=== PATIENT | male | born 1955 | race Caucasian/White ===

== ENCOUNTER 2016-12-16 07:41 | Outpatient (CLI) | payer BC ==
[~2016-12-16 07:41] MED LIST: ISOVUE-370 76% 1 ML ONE
--- NOTE | 2016-12-16 09:13 | CT ---
CT CHEST WITH IV CONTRAST CT ABDOMEN WITH IV CONTRAST CT PELVIS WITH IV CONTRAST: HISTORY: A 61-year-old male with malignant calcified tumors of both sides. COMPARISON: 07/13/16. FINDINGS: The 1.7 cm left paratracheal lymph node in the superior mediastinum adjacent to the thyroid gland is stable. No other enlarged mediastinal, hilar, or axillary lymph nodes are seen. Mild atelectatic changes are noted in the lower lung fofana. A 9 mm pulmonary nodule in the medial aspect of the lef t lower lobe is stable. No new pulmonary nodules are seen. The pleural or pericardial effusions ar e identified. Changes of fatty infiltration of the liver are redemonstrated. The 1 cm focal area of enhancement i n the right hepatic lobe is stable since 11/27/14. No new hepatic lesions are seen. The spleen, pancreas, adrenal glands, and left kidney are normal. A nonobstructing right renal calc ulus is redemonstrated. No calcified gallstones are seen. No free air or free fluid is seen in the abdomen or pelvis. mesenteric lymphadenopathy is again not ed. The enlarged lymph node in the central lower mesentery is stable measuring 4.2 cm. Prominent n onenlarged lymph nodes in the javi hepatis and periaortic and aortocaval lesions are stable. Postop changes of right total hip prostheses and old fracture deformity of the left clavicle are red emonstrated. There are degenerative changes in the spine. The small bowel loops are not abnormally dilated. There is mild sigmoid diverticulosis. IMPRESSION: Stable exam since 07/13/16. POS: [facility]
== END 2016-12-16 07:42 | disposition home or self-care (01) ==
LOC: CT 07:41
PROVIDERS: ATTEND Internal Medicine Hematology & Oncology
DX: C7A.098 Malignant carcinoid tumors of other sites (principal)
CPT/HCPCS: 71260; 74177

== ENCOUNTER 2018-01-01 07:25 | Outpatient (CLI) | payer BC ==
--- NOTE | 2018-01-01 11:57 | CT ---
CT OF THE CHEST AND ABDOMEN AND PELVIS WITH IV CONTRAST: INDICATION: History of malignant carcinoid tumor. CONTRAST: 70 cc of Isovue 370. COMPARISON: CT of the chest, abdomen, and pelvis dated 12/16/16. FINDINGS: The left paratracheal enlarged lymph node is stable measuring approximately 1.6 cm. No new pathologi c lymph node is seen within the mediastinum, hilar, or axillary regions. There is linear scarring versus atelectasis again seen within the left lung. The 9 mm pulmonary nodu le within the medial left lower lobe is stable. No new pulmonary nodule is identified. There is stale fatty infiltration of the liver. The 1 cm focal area of enhancement involving the rig ht hepatic lobe is stable. No new hepatic lesion is evident. There is a stable 5 mm stone within the mid lower pole of the right kidney. The central mesenteric lymphadenopathy is stable. The largest lymph node measures 2.6 x 4.3 cm where it previously measured 2.5 x 4.2 cm. No new pathologically enlarged lymph nodes are evident. Stran ding of the central mesentery appears slightly more pronounced than on the prior exam. Prominent vascular calcifications are similar-appearing. There is stable postoperative change of a right total hip prosthesis. There is scattered degenerativ e and osteoarthritic change. IMPRESSION: 1. Examination remains unchanged from the comparison dated 12/16/16 2. Lymphadenopathy of left paratracheal and central mesenteric regions appears similar. 3. Small enhancing lesion of the right hepatic lobe is stable. 4. Left lower lobe pulmonary nodule is stable. 5. Stable fatty liver. 6. Stable nephrolithiasis. POS: [facility]
[2018-01-01] MEDS ORDERED: ISOVUE-370 76%-LOCM 1 ML ONE (12:20)
== END 2018-01-01 07:26 | disposition home or self-care (01) ==
LOC: BICCT 07:25
PROVIDERS: ATTEND Internal Medicine Hematology & Oncology
DX: C7A.098 Malignant carcinoid tumors of other sites (principal); R59.0 Localized enlarged lymph nodes; K76.9 Liver disease, unspecified; R91.1 Solitary pulmonary nodule; K76.0 Fatty (change of) liver, not elsewhere classified; N20.0 Calculus of kidney
CPT/HCPCS: 71260; 74177; 82565

== ENCOUNTER 2022-11-07 15:40 | Outpatient (CLI) | payer MEDICARE ==
[2022-11-07 17:20] LABS: Anion Gap 15 mmol/L (10-20); BUN (Urea Nitrogen) 15 mg/dL (8.4-25.7); Calc. Creatinine Clearance 0 mL/min (70-130); Calcium 8.7 mg/dL (7.8-10.44); Carbon Dioxide 25 mmol/L (23-31); Chloride 109 mmol/L (98-107); Estimated GFR 94; Glucose 99 mg/dL (80-115); Potassium 4.3 mmol/L (3.5-5.1); Sodium 145 mmol/L (136-145)
== END 2022-11-07 15:41 | disposition home or self-care (01) ==
LOC: LABBT 15:40
PROVIDERS: ATTEND Student in an Organized Health Care Education/Training Program
DX: Z01.818 Encounter for other preprocedural examination (principal); J32.9 Chronic sinusitis, unspecified; J34.89 Other specified disorders of nose and nasal sinuses; J34.2 Deviated nasal septum; J34.3 Hypertrophy of nasal turbinates; J32.0 Chronic maxillary sinusitis; J32.1 Chronic frontal sinusitis; J32.2 Chronic ethmoidal sinusitis
CPT/HCPCS: 80048; 85014; 85018; 93005; 93010

== ENCOUNTER 2022-11-08 09:52 | Day surgery (SDC) | payer MEDICARE ==
[2022-11-07 16:31] VITALS: BMI 24.4
[2022-11-08] MEDS ORDERED: Oxymetazoline HCl 0.05% (30 ML BOT) ONE ×2 (11:06→11:45)
[2022-11-08] MEDS ORDERED: Bacitracin Zinc Ointment 30 gm TUBE ONE (11:45)
[2022-11-08] MEDS ORDERED: EPINEPHrine 1 MG/ML AMP ONE (11:45)
[2022-11-08] MEDS ORDERED: Lidocaine 1% (PF) 30 ML VIAL ONE (11:46)
[2022-11-08] MEDS ORDERED: fentaNYL PF 100 MCG/2 ML SYRINGE ONE (11:47)
[2022-11-08] MEDS ORDERED: Famotidine/PF 20 mg/2ml Vial ONE (11:47)
[2022-11-08] MEDS ORDERED: SUGAMMADEX SODIUM 200 MG/2 ML VIAL ONE (11:47)
[2022-11-08] MEDS ORDERED: Sevoflurane 250 ML INH ANEST BOTTLE ONE (11:48)
[2022-11-08] MEDS ORDERED: CEFAZOLIN 2 GM VIAL ONE (11:55)
[2022-11-08] MEDS ORDERED: Sodium Chloride 0.9% 100 ML ONE (11:55)
[2022-11-08] MEDS ORDERED: PROPOFOL 200 MG/20 ML VIAL ONE (12:08)
[2022-11-08] MEDS ORDERED: Ondansetron PF 4 MG/2 ML Vial ONE (12:08)
[2022-11-08] MEDS ORDERED: Glycopyrrolate 0.2 MG/ML 5 ML SYRINGE ONE (12:08)
[2022-11-08] MEDS ORDERED: Lidocaine 1% PF 5 ML VIAL ONE (12:08)
[2022-11-08] MEDS ORDERED: Dexamethasone 20 MG/5 ML VIAL ONE (12:08)
[2022-11-08] MEDS ORDERED: NEOSTIGMINE 3 MG/3 ML SYR 3 MG/3 ML SYRINGE ONE (12:08)
[2022-11-08] MEDS ORDERED: Rocuronium Bromide 10 MG/ML (10ML VIAL) ONE (12:08)
[2022-11-08] MEDS ORDERED: PHENYLEPHRINE-NS 100 MCG/ML 10 ML SYRINGE ONE (12:08)
[2022-11-08] MEDS ORDERED: Triamcinolone 40 MG/ML VIAL ONE (14:21)
[2022-11-08 15:07] LABS: #Eosinphils 0.1 thou/uL (0.0-0.7); #Monocytes 0.6 thou/uL (0.11-0.59); %Basophils 0.5 % (0.0-1.0); %Eosinophils 1.7 % (0.0-10.0); %Lymphocytes 12.9 % (21.0-51.0); %Monocytes 7.9 % (0.0-10.0); %Neutrophils 76.5 % (42.0-75.0); Hemoglobin 10.1 g/dL (14.0-18.0); Mean Corpuscular HGB CONC 32.5 g/dL (32.0-36.0); Mean Corpuscular Hemoglobin 32.1 pg (27.0-31.0); Mean Corpuscular Volume 98.7 fl (78.0-98.0); Mean Platelet Volume 8.9 fL (7.4-10.4); Platelet Count 346 10x3/uL (130-400); RBC Distribution Width 13.5 % (11.5-14.5); Red Blood Cell (RBC) Count 3.15 mill/uL (4.70-6.10); White Blood Cell (WBC) Count 7.8 10x3/uL (4.8-10.8)
[2022-11-08] MEDS ORDERED: fentaNYL 50 mcg/mL 1 mL Vial ONE (15:31)
== END 2022-11-08 16:38 | disposition home or self-care (01) ==
LOC: SDC 09:52
PROVIDERS: ATTEND Student in an Organized Health Care Education/Training Program
PROC: 09BL8ZZ Excision of Nasal Turbinate, Via Natural or Artificial Opening Endoscopic (ICD-10-PCS; principal; 2022-11-08)
PROC: 09BV8ZZ Excision of Left Ethmoid Sinus, Via Natural or Artificial Opening Endoscopic (ICD-10-PCS; 2022-11-08)
PROC: 09BW8ZZ Excision of Right Sphenoid Sinus, Via Natural or Artificial Opening Endoscopic (ICD-10-PCS; 2022-11-08)
PROC: 09BX8ZZ Excision of Left Sphenoid Sinus, Via Natural or Artificial Opening Endoscopic (ICD-10-PCS; 2022-11-08)
PROC: 09BQ8ZZ Excision of Right Maxillary Sinus, Via Natural or Artificial Opening Endoscopic (ICD-10-PCS; 2022-11-08)
PROC: 09BR8ZZ Excision of Left Maxillary Sinus, Via Natural or Artificial Opening Endoscopic (ICD-10-PCS; 2022-11-08)
PROC: 09BS8ZZ Excision of Right Frontal Sinus, Via Natural or Artificial Opening Endoscopic (ICD-10-PCS; 2022-11-08)
PROC: 09BT8ZZ Excision of Left Frontal Sinus, Via Natural or Artificial Opening Endoscopic (ICD-10-PCS; 2022-11-08)
PROC: 09BU8ZZ Excision of Right Ethmoid Sinus, Via Natural or Artificial Opening Endoscopic (ICD-10-PCS; 2022-11-08)
DX: J32.4 Chronic pansinusitis (principal); J34.3 Hypertrophy of nasal turbinates; I10 Essential (primary) hypertension; J34.89 Other specified disorders of nose and nasal sinuses; Z87.891 Personal history of nicotine dependence
CPT/HCPCS: 30140; 31259; 31267; 31276; 85025; 87070; 87075; 87077; 87102; 87205; 87206; C1726; J3010; 87186; 88305; 88312; 88342; J0171; J1100; J1650; J2001; J2405; J2704; J3301; J3490; S0028

== ENCOUNTER 2023-03-31 11:52 | Outpatient (CLI) | payer MEDICARE ==
[2023-03-31 12:50] LABS: #Basophils 0.1 10x3/uL (0.0-0.2); #Eosinphils 0.2 10x3/uL (0.0-0.5); #Monocytes 0.9 10x3/uL (0.0-1.1); #Neutrophils 6.9 10x3/uL (1.5-8.4); %Basophils 0.5 % (0.0-2.0); %Eosinophils 1.9 % (0.0-6.0); %Lymphocytes 13.9 % (18.0-47.0); %Monocytes 9.5 % (0.0-10.0); %Neutrophils 73.8 % (40.0-75.0); Hematocrit 42.5 % (38.8-50.0); Hemoglobin 13.7 g/dL (13.5-17.5); Mean Corpuscular HGB CONC 32.2 g/dL (32.0-36.0); Mean Corpuscular Hemoglobin 30.2 pg (27.0-33.0); Mean Corpuscular Volume 93.8 fl (81.2-95.1); Mean Platelet Volume 8.8 fl (7.4-10.4); Platelet Count 617 10x3/uL (150-450); RBC Distribution Width 12.3 % (11.5-14.5); Red Blood Cell (RBC) Count 4.53 10x6/uL (4.32-5.72); White Blood Cell (WBC) Count 9.4 10x3/uL (3.5-10.5)
[2023-03-31 13:06] LABS: INR-International Normal Ratio 1.1; Prothrombin Time 11.6 sec (9.5-12.1)
[2023-03-31 13:19] LABS: Anion Gap 17 mmol/L (10-20); BUN (Urea Nitrogen) 17 mg/dL (8.4-25.7); Calc. Creatinine Clearance 0 mL/min (70-130); Calcium 9.3 mg/dL (7.8-10.44); Carbon Dioxide 23 mmol/L (23-31); Chloride 104 mmol/L (98-107); Estimated GFR 87; Glucose 141 mg/dL (80-115); Potassium 4.2 mmol/L (3.5-5.1); Sodium 140 mmol/L (136-145)
== END 2023-03-31 11:53 | disposition home or self-care (01) ==
LOC: LABBT 11:52
PROVIDERS: ATTEND Orthopaedic Surgery
DX: Z01.818 Encounter for other preprocedural examination (principal); M16.12 Unilateral primary osteoarthritis, left hip
CPT/HCPCS: 80048; 85025; 85610; 87081; 93005; 93010

== ENCOUNTER 2023-05-25 15:20 | Outpatient (CLI) | payer MEDICARE ==
[2023-05-25 16:08] LABS: #Basophils 0.1 10x3/uL (0.0-0.2); #Eosinphils 0.4 10x3/uL (0.0-0.5); #Monocytes 0.8 10x3/uL (0.0-1.1); #Neutrophils 6.8 10x3/uL (1.5-8.4); %Lymphocytes 15.2 % (18.0-47.0); %Monocytes 8.7 % (0.0-10.0); %Neutrophils 70.6 % (40.0-75.0); Hemoglobin 13.8 g/dL (13.5-17.5); Mean Corpuscular HGB CONC 32.1 g/dL (32.0-36.0); Mean Corpuscular Hemoglobin 29.8 pg (27.0-33.0); Mean Corpuscular Volume 92.9 fl (81.2-95.1); Platelet Count 407 10x3/uL (150-450); RBC Distribution Width 14.4 % (11.5-14.5); Red Blood Cell (RBC) Count 4.63 10x6/uL (4.32-5.72); White Blood Cell (WBC) Count 9.6 10x3/uL (3.5-10.5)
[2023-05-25 16:25] LABS: Prothrombin Time 10.4 sec (9.5-12.1)
[2023-05-25 16:33] LABS: Anion Gap 17 mmol/L (10-20); BUN (Urea Nitrogen) 21 mg/dL (8.4-25.7); Calc. Creatinine Clearance 0 mL/min (70-130); Calcium 8.9 mg/dL (7.8-10.44); Carbon Dioxide 24 mmol/L (23-31); Chloride 103 mmol/L (98-107); Estimated GFR 67; Glucose 97 mg/dL (80-115); Sodium 139 mmol/L (136-145)
== END 2023-05-25 15:21 | disposition home or self-care (01) ==
LOC: LABBT 15:20
PROVIDERS: ATTEND Orthopaedic Surgery
DX: Z01.812 Encounter for preprocedural laboratory examination (principal); M16.12 Unilateral primary osteoarthritis, left hip
CPT/HCPCS: 80048; 85025; 85610; 87081

== ENCOUNTER 2023-05-30 09:10 | Inpatient (IN) | payer MEDICARE ==
[2023-05-25 15:49] VITALS: BMI 21.7
[~2023-05-30 09:10] MED LIST changes: +Dexamethasone 4 mg/ml Vial ONE; -ISOVUE-370 76% 1 ML ONE; +Ondansetron PF 4 MG/2 ML Vial ONE; +PROPOFOL 20 ML ONE; +Phenylephrine 10 MG/ML VIAL ONE; +Rocuronium Bromide 10 MG/ML (10ML VIAL) ONE; +Ropivacaine 0.2% HCl/PF 20 ML ONE; +SUGAMMADEX SODIUM 200 MG/2 ML VIAL ONE; +fentaNYL PF 100 MCG/2 ML SYRINGE ONE
[2023-05-30] MEDS ORDERED: Tranexamic Acid 1,000 MG/10 ML VIAL ONE (09:35)
[2023-05-30] MEDS ORDERED: Sodium Chloride 0.9% 100 ML ONE ×2 (09:36→10:01)
[2023-05-30] MEDS ORDERED: Vancomycin 1 GM/200 ML (FROZEN) BAG ONE (09:36)
[2023-05-30] MEDS ORDERED: fentaNYL 50 mcg/mL 1 mL Vial ONE (09:58)
[2023-05-30] MEDS ORDERED: Midazolam HCl 2 mg/2 ml Vial ONE (09:58)
[2023-05-30] MEDS ORDERED: CEFAZOLIN 2 GM VIAL ONE (10:01)
[2023-05-30] MEDS ORDERED: ACTIVE EPIDURAL FS PRN (10:37)
[2023-05-30] MEDS ORDERED: Promethazine HCl 25 MG/ML VIAL IM PRN ×3 (10:45→12:43)
[2023-05-30] MEDS ORDERED: diphenhydrAMINE 25 MG CAP PO PRN ×2 (10:45→12:43)
[2023-05-30] MEDS ORDERED: Moisturizing Cream (Eucerin) 113 GM JAR TOP PRN (10:45)
[2023-05-30] MEDS ORDERED: traMADol HCl 50 MG TAB PO PRN ×2 (10:45)
[2023-05-30] MEDS ORDERED: Naloxone HCl 0.4 mg/ml Vial IV PRN (10:45)
[2023-05-30] MEDS ORDERED: diphenhydrAMINE 50 MG/ML VIAL IM PRN (10:45)
[2023-05-30] MEDS ORDERED: HYDROcodone/Acetaminophen 5/325 mg Tablet PO PRN ×2 (10:45)
[2023-05-30] MEDS ORDERED: Naloxone HCl 0.4 mg/ml Vial IVP PRN (10:45)
[2023-05-30] MEDS ORDERED: Ondansetron PF 4 MG/2 ML Vial IVP PRN ×2 (10:45→12:43)
[2023-05-30] MEDS ORDERED: Zolpidem Tartrate 5 MG TAB PO PRN ×2 (10:45→12:43)
[2023-05-30] MEDS ORDERED: Promethazine HCl 25 MG SUPP PR PRN (10:45)
[2023-05-30] MEDS ORDERED: PROPOFOL 200 MG/20 ML VIAL ONE (10:55)
[2023-05-30] MEDS ORDERED: Lidocaine 1.5% w/Epi 1:200K 30 ML VIAL (Epid Use) ONE (10:55)
[2023-05-30] MEDS ORDERED: PHENYLEPHRINE-NS 100 MCG/ML 10 ML SYRINGE ONE (10:55)
[2023-05-30] MEDS ORDERED: Rocuronium Bromide 10 MG/ML (10ML VIAL) ONE (10:55)
[2023-05-30] MEDS ORDERED: Dexamethasone 20 MG/5 ML VIAL ONE (10:55)
[2023-05-30] MEDS ORDERED: Ondansetron HCl/PF 4 MG/2 ML Vial IVP PRN (11:47)
[2023-05-30] MEDS ORDERED: Acetaminophen 325 MG TAB PO PRN (12:43)
[2023-05-30] MEDS: Sodium Chloride 0.9% 1,000 ML IV SCH (16:10)
[2023-05-30] MEDS: Ketorolac Tromethamine 30 MG (1 mL) VIAL IVP SCH (16:11)
[2023-05-30] MEDS: CEFAZOLIN 2 GM in Sodium Chloride 0.9% 100 ML IVPB SCH (18:39)
[2023-05-30] MEDS: Ferrous Gluconate 324 MG TAB PO SCH (20:59)
[2023-05-30] MEDS: Aspirin 81 mg Enteric Coated Tablet PO SCH (20:59)
[2023-05-31] MEDS: diphenhydrAMINE 50 MG/ML VIAL IVP PRN (01:42)
[2023-05-31 04:55] LABS: Hematocrit 35.8 % (42.0-52.0); Hemoglobin 11.4 g/dL (14.0-18.0); Mean Corpuscular HGB CONC 31.8 g/dL (32.0-36.0); Mean Corpuscular Hemoglobin 29.5 pg (27.0-31.0); Mean Corpuscular Volume 92.7 fl (78.0-98.0); Mean Platelet Volume 9.3 fL (7.4-10.4); Platelet Count 341 10x3/uL (130-400); RBC Distribution Width 14.6 % (11.5-14.5); Red Blood Cell (RBC) Count 3.86 mill/uL (4.70-6.10); White Blood Cell (WBC) Count 8.5 10x3/uL (4.8-10.8)
[2023-05-31] MEDS: FENTANYL 500 MCG/10 ML VIAL 500 MCG, Bupivacaine 0.75% 10 ML in Sodium Chloride 0.9% 80 ML EPIDURAL SCH (05:46)
[2023-05-31] MEDS: HYDROcodone/Acetaminophen 10/325 mg Tablet PO PRN ×2 (15:00→22:04)
[2023-05-31] MEDS: Senokot S 8.6-50 MG TAB PO SCH (15:04)
[2023-05-31] MEDS: Multivitamin W/ Minerals 1 TAB PO SCH (15:04)
[2023-05-31] MEDS: Atenolol 50 MG TAB PO SCH (22:09)
[2023-05-31] MEDS: Atorvastatin Calcium 10 MG TAB PO SCH (22:10)
[2023-06-01 05:11] LABS: Hematocrit 34.7 % (42.0-52.0); Mean Corpuscular HGB CONC 31.7 g/dL (32.0-36.0); Mean Corpuscular Hemoglobin 30.2 pg (27.0-31.0); Mean Corpuscular Volume 95.3 fl (78.0-98.0); Mean Platelet Volume 9.1 fL (7.4-10.4); Platelet Count 321 10x3/uL (130-400); RBC Distribution Width 15.1 % (11.5-14.5); Red Blood Cell (RBC) Count 3.64 mill/uL (4.70-6.10); White Blood Cell (WBC) Count 7.4 10x3/uL (4.8-10.8)
[2023-06-01 07:29] VITALS: BP 158/82
[2023-06-01 07:59] VITALS: TEMP 98.3
[2023-06-01] MEDS: Amlodipine 10 MG TAB PO SCH (08:41)
[2023-06-01] MEDS ORDERED: Simvastatin 20 MG TAB PO SCH (09:00)
== END 2023-06-01 10:30 | disposition home or self-care (01) | DRG 470 ==
LOC: SDC 09:10 → SURG B 14:22 → OBSVTOIN 05-31 09:12
PROVIDERS: ADMIT Orthopaedic Surgery; ATTEND Orthopaedic Surgery
PROC: 0SRB03Z Replacement of Left Hip Joint with Ceramic Synthetic Substitute, Open Approach (ICD-10-PCS; principal; 2023-05-30)
DX: M16.12 Unilateral primary osteoarthritis, left hip (principal); I10 Essential (primary) hypertension; Z96.641 Presence of right artificial hip joint; Z98.890 Other specified postprocedural states; Z79.899 Other long term (current) drug therapy; Z87.891 Personal history of nicotine dependence
CPT/HCPCS: 36415; 72170; 77014; 85027; 96365; 96375; 96376; C1776; G0378; J1100; J1200; J1885; J2001; J2250; J2371; J2405; J2704; J2795; J3010; J3370-JW; J3490; J7050